=== PATIENT | female | born 1985 | race Caucasian/White ===

== ENCOUNTER 2016-07-01 18:26 | Emergency (ER) | payer BC ==
[~2016-07-01] VITALS: Ht 170.2 cm; Wt 93.0 kg
[~2016-07-01 18:26] MED LIST: ACHD5005 PO; CPR500T PO; FERR-57 PO; OXYC-12 PO; PREN1TAB71 PO; VALA500T4 PO; ZLP5T PO
[2016-07-01] MEDS ORDERED: TETANUS,DIPTH,PERTUSS P/F (BOOSTRIX) 0.5 ML VIAL IM STA (18:58)
[2016-07-01] MEDS ORDERED: PHEN-452 (19:07)
[2016-07-01] MEDS ORDERED: TOPI25TA10 (19:07)
--- NOTE | 2016-07-01 19:16 | ED General ---
General Chief Complaint: Laceration Stated Complaint: R ARM/ELBOW LAC Nursing Triage Note: PT TO ED 10 W/ C/O LACERATION TO RFA. PT REPORTS CUT IT ON BROKEN GLASS UNDER HER BED. NO ACTIVE BLEEDING NOTED AT THIS TIME. Nursing Sepsis Screen: No Definite Risk Source of Information: Patient Exam Limitations: No Limitations History of Present Illness Time Seen by Provider: 19:16 Initial Comments 31-year-old female patient presents to the emergency department with complaints of a laceration to the right forearm. Patient states she was reaching under the bed for piece of broken glass when she cut her arm on the glass. Location Injury Occurred: home Timing/Duration: 1/2 Hour Modifying Factors: worse with Other (worse with palpation) Allergies and Home Medications Allergies Coded Allergies: Penicillins (Unverified Allergy, HIVES, 09/19/11) Home Medications Phentermine HCl 30 Mg Capsule, #30 (Reported) Topiramate 25 Mg Tablet, #60 (Reported) Constitutional: no symptoms reported Musculoskeletal: No joint pain, No muscle pain Skin: see HPI Psychiatric/Neurological: Denies Numbness, Denies Paresthesia, Denies Tingling , Denies Weakness All Other Systems Reviewed Negative Unless Noted: Yes (Negative excepted noted.) Past Ylgduoz-Dypizp-Jclhaj Hx Patient Social History Alcohol Use: Occasionally Uses Recreational Drug Use: No Smoking Status: Never a Smoker Recent Foreign Travel: No Contact w/Someone Who Travel: No Recent Infectious Disease Expo: No Recent Hopitalizations: No Immunizations Up To Date Tetanus Booster (TDap): Unknown Surgeries HX Surgeries: No Respiratory Hx Respiratory Disorders: No Cardiovascular Hx Cardiac Disorders: No Neurological Hx Neurological Disorders: No Reproductive System Hx Reproductive Disorders: No Genitourinary Hx Genitourinary Disorders: No Gastrointestinal Hx Gastrointestinal Disorders: No Musculoskeletal Hx Musculoskeletal Disorders: Yes (FX T9 2008) Endocrine Hx Endocrine Disorders: No HEENT HX ENT Disorders: No Psychosocial Hx Psychiatric Problems: No Blood Transfusions Hx Blood Disorders: No Reviewed Nursing Assessment Reviewed/Agree w Nursing PMH: Yes Family Medical History Significant Family History: No Pertinent Family Hx Physical Exam Vital Signs Vital Sign - Last 12Hours 07/01/16 18:51 Temp 97.1 Pulse 87 Resp 18 B/P (MAP) 128/88 Pulse Ox 99 O2 Delivery Room Air Capillary Refill : Less Than 3 Seconds General Appearance: No Apparent Distress, WD/WN Cardiovascular: No Edema, Normal Peripheral Pulses Extremity: Normal Capillary Refill, Normal Range of Motion, Non Tender, Other ( 3 cm partial thickness laceration of the right forearm without active bleeding. ) Neurologic/Psychiatric: Alert, Oriented x3, No Motor/Sensory Deficits, Normal Mood/Affect Skin: Normal Color, Warm/Dry, Other (3 cm partial thickness laceration of the right forearm without active bleeding. ) Laceration Repair : Wound Location: Upper Extremities (right forearm) Wound Length (cm): 3 Wound's Depth, Shape: superficial, linear Wound Explored: clean Betadine Prep?: No (wound scrubbed with chlorhexidine and sterile saline) Other Closure Supply: Wound Adhesive Progress Blood loss minimal. Patient tolerated the procedure well. Progress/Results/Core Measures Results/Orders My Orders Orders - ROBERT GARCIA Dipht,Pertuss(Acell),Tet Adult (Boostrix (07/01/16 18:58) Vital Signs/I&O Blood Pressure Mean: 101 Departure Impression Impression: Primary Impression: Laceration of right forearm without complication Qualified Codes: S51.811A - Laceration without foreign body of right forearm, initial encounter Disposition: 01 HOME, SELF-CARE Condition: Improved Departure-Patient Inst. Decision time for Depature: 19:22 Referrals: NEVILLE MENDES MD (PCP) Primary Care Physician Patient Instructions: Laceration Repair With Glue (DC) Add. Discharge Instructions: All discharge instructions reviewed with patient and/or family. Voiced understanding. Tylenol [id number]-[id number] as directed for pain if needed. Ibuprofen 800 mg by mouth every 8 hours as needed for pain. Ice pack for 20 minute intervals for pain and swelling. Tomorrow morning you may begin showering with antibacterial soap. Avoid scrubbing the wound. Follow-up with Dr. Mendes if needed. Return to the emergency department for worsened pain, redness, fever, drainage, or any other concerns. ROBERT GARCIA Jul 01, 2016 19:16
[2016-07-01 19:33] VITALS: BP 0/0
--- OUTSIDE RECORDS SUMMARY | 2016-07-20 05:06 | XMS REPORT | Continuity of Care Document ---
Author Author [facility] [address] Organization [facility] [address] Address Unknown Phone Unavailable Allergies Active Description Code Type Severity Reaction Onset Reported/Identified Relationship to Patient Clinical Status Yes Penicillins [id number] Drug Allergy Unknown HIVES 09/19/2011 Medications Problems Date Dx Coded Attending Type Code Diagnosis Diagnosed By 01/19/2011 Ot 599.0 01/19/2011 Ot 789.04 01/19/2011 Ot 789.09 09/08/2011 Ot 276.51 09/08/2011 Ot 648.73 09/08/2011 Ot 648.93 09/08/2011 Ot 724.5 09/08/2011 Ot 780.4 09/08/2011 Ot 787.01 09/08/2011 Ot 787.91 09/26/2011 Ot 285.1 09/26/2011 Ot 647.61 09/26/2011 Ot 648.22 09/26/2011 Ot 652.51 09/26/2011 Ot 656.61 09/26/2011 Ot 660.01 09/26/2011 Ot 660.31 09/26/2011 Ot 663.31 09/26/2011 Ot V06.1 09/26/2011 Ot V27.0 04/05/2014 Ot 656.63 04/05/2014 Ot V72.63 04/05/2014 Ot V74.8 04/07/2014 ALFREDITO WANG RADIATOR TESTER Ot 272.4 04/07/2014 ALFREDITO WANG RADIATOR TESTER Ot 780.79 05/01/2014 ALFREDITO WANG RADIATOR TESTER Ot 272.4 05/01/2014 ALFREDITO WANG RADIATOR TESTER Ot 780.79 01/31/2015 YOBANY LEBRON RADIATOR TESTER Ot R10.9 03/07/2015 ALFREDITO WANG RADIATOR TESTER Ot R10.11 03/22/2015 ALFREDITO WANG RADIATOR TESTER Ot R10.11 07/02/2016 ROBERT CARBAJAL Ot S51.811A LACERATION W/O FOREIGN BODY OF RIGHT FOR 07/02/2016 ROBERT CARBAJAL Ot W25.XXXA CONTACT WITH SHARP GLASS, INITIAL ENCOUN 07/02/2016 ROBERT CARBAJAL Ot Y92.013 BEDROOM OF SINGLE-FAMILY (PRIVATE) HOUSE 07/02/2016 ROBERT CARBAJAL Ot Y99.8 OTHER EXTERNAL CAUSE STATUS 07/02/2016 ROBERT CARBAJAL Ot Z23 ENCOUNTER FOR IMMUNIZATION 07/07/2016 ROBERT CARBAJAL Ot S51.811A LACERATION W/O FOREIGN BODY OF RIGHT FOR 07/07/2016 ROBERT CARBAJAL Ot W25.XXXA CONTACT WITH SHARP GLASS, INITIAL ENCOUN 07/07/2016 ROBERT CARBAJAL Ot Y92.013 BEDROOM OF SINGLE-FAMILY (PRIVATE) HOUSE 07/07/2016 ROBERT CARBAJAL Ot Y99.8 OTHER EXTERNAL CAUSE STATUS 07/07/2016 ROBERT CARBAJAL Ot Z23 ENCOUNTER FOR IMMUNIZATION Procedures Results Encounters ACCT No. Visit Date/Time Discharge Status Pt. Type Provider Facility Loc./Unit Complaint [id number] 07/01/2016 18:28:00 2016 19:33:00 DIS Outpatient ROBERT CARBAJAL [facility] [address] ER R ARM/ELBOW LAC [id number] 03/05/2015 12:24:00 2014 23:59:59 CLS Outpatient ALFREDITO WANG RADIATOR TESTER [facility] [address] CARD [id number] 01/18/2015 08:27:00 2014 23:59:59 CLS Outpatient YOBANY LEBRON RADIATOR TESTER [facility] [address] RAD [id number] 04/05/2014 08:44:00 2013 23:59:59 CLS Outpatient ALFREDITO WANG RADIATOR TESTER [facility] [address] LAB [id number] 04/05/2014 08:42:00 Document Registration [id number] 09/23/2011 05:45:00 Document Registration [id number] 09/19/2011 08:20:00 Document Registration [id number] 09/07/2011 18:00:00 Document Registration [id number] 01/19/2011 02:40:00 Document Registration
== END 2016-07-01 19:33 | disposition home or self-care (01) ==
LOC: EDUNIT# 18:26 → ER 18:28
DX: S51.811A Laceration without foreign body of right forearm, initial encounter (principal); Z23 Encounter for immunization; W25.XXXA Contact with sharp glass, initial encounter; Y92.013 Bedroom of single-family (private) house as the place of occurrence of the external cause; Y99.8 Other external cause status
CPT/HCPCS: 12001; 90471; 90715

== ENCOUNTER → 2018-04-15 | Outpatient (CLI) | payer BC ==
[~2018-04-15] MED LIST changes: +PHEN30CA2; +TOPI25TA10
== END ==
LOC: LAB 15:26
PROVIDERS: ATTEND Family Medicine
DX: Z13.1 Encounter for screening for diabetes mellitus (principal); L68.0 Hirsutism; L70.9 Acne, unspecified
CPT/HCPCS: 36415; 82670; 83036; 84144; 84403

== ENCOUNTER 2019-05-02 08:05 | Emergency (ER) | payer BC ==
[~2019-05-02] VITALS: Ht 170 cm; Wt 105.8 kg
[2019-05-02] MEDS ORDERED: SPIR25TA5 (08:32)
[2019-05-02] MEDS ORDERED: ESCI20TA45 (08:32)
[2019-05-02] MEDS ORDERED: ALPR1TAB7 (08:32)
[2019-05-02] MEDS ORDERED: KETOROLAC 30 MG/ML VIAL IVP ONE (09:15)
[2019-05-02 09:22] LABS: BILIRUBIN,URINE NEGATIVE (NEGATIVE); CLARITY,URINE CLEAR; COLOR,URINE YELLOW; GLUCOSE, URINE (UA) NEGATIVE (NEGATIVE); KETONES,URINE NEGATIVE (NEGATIVE); LEUKOCYTE ESTERASE ,URINE TRACE (NEGATIVE); NITRITE,URINE NEGATIVE (NEGATIVE); PROTEIN,URINE NEGATIVE (NEGATIVE)
--- NOTE | 2019-05-02 09:22 | ED General ---
General Chief Complaint: General Problems/Pain Stated Complaint: BODYACHES Nursing Triage Note: PT CO OF GENERALIZED BODY ACHES ANKLES, KNEES, HIP, HANDS, ELBOWS AND LOWER BACK STATES HAD EPISODE WHEN COULD NOT GET OFF STOOL LAST NITE. HAS DECREASED MOBILITY RATES PAIN 8/10 WORSE AT TIMES. PT HAS SEEN PCP. STATES KURT ELEVATED. PT TEARFUL.STATES TEENAGER TO HELP OFF COMMODE LAST NITE Nursing Sepsis Screen: No Definite Risk Source of Information: Patient Exam Limitations: No Limitations (BEN BRITO MEDICAL STUDENT) History of Present Illness Date Seen by Provider: May 02, 2019 Time Seen by Provider: 08:42 Initial Comments Ms. Botello is a 34 year-old female presenting to the ED via private vehicle for generalized pain. Patient reports that she has been dealing with joint pain "attacks" for the last 4 weeks. During these crises, a number of her large joints hurt. These joints involved have ranged from ankles, knees, hips, and hands. Today she presents with pain in both of her knees, left worse than right, left ankle pain, and left hand pain. She rates the pain as an 8/10 while seated but a 10/10 with any movement. She says the pain is worst with standing/walking. She was unable to get off the toilet last night due to pain and had to call her son for help. She has tried both Tylenol 325mg and Ibuprofen 200mg (x4) for the pain, which provide a small amount of relief for about an hour. She denies muscle pain and feels the pain is intraarticular. She denies any fevers, chills, chest pain, shortness of air, vomiting, diarrhea, or abdominal pain. 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 Previous workup revealed (+)KURT and (-)RF. She is unsure about further results. (BEN BRITO MEDICAL STUDENT) Allergies and Home Medications Allergies Coded Allergies: Penicillins (Unverified Allergy, HIVES, 09/19/11) Review of Systems Review of Systems Constitutional: other (Denies fever, chills) EENTM: nose congestion, other (Recent mild congestion, now resolved. Denies visual disturbances) Respiratory: no symptoms reported, other (Denies SOA, cough, or hemoptysis) Cardiovascular: no symptoms reported, other (Denies chest pain or palpitations) Gastrointestinal: no symptoms reported, other (Denies vomiting, diarrhea, or abdominal pain.) Genitourinary: no symptoms reported, other (Denies hematuria, dysuria, or urgency.) Musculoskeletal: see HPI, joint pain (Polyarthralgias- Hips, knees, ankles, hands. Maximal at left knee today.) Psychiatric/Neurological: Tingling (Left hand), Weakness (Secondary to pain- unable to ambulate at times. ) Hematologic/Lymphatic: No Symptoms Reported (BEN BRITO MEDICAL STUDENT) Past Eysxrlf-Pdtepi-Yaytba Hx Patient Social History Alcohol Use: Rarely Uses Recreational Drug Use: No Smoking Status: Never a Smoker Recent Foreign Travel: No Contact w/Someone Who Travel: No Recent Infectious Disease Expo: No Recent Hopitalizations: No Physical Abuse: No Sexual Abuse: No (BEN BRITO MEDICAL STUDENT) Immunizations Up To Date Tetanus Booster (TDap): Unknown (BEN BRITO STUDENT) Past Medical History Surgeries: No Respiratory: No Cardiac: No Neurological: No Last Menstrual Period: Apr 18, 2019 Reproductive Disorders: No Gastrointestinal: No Musculoskeletal: Yes (FX T9 2008) Endocrine: No Psychosocial: No Blood Disorders: No (BEN BRITO MEDICAL STUDENT) Family Medical History No Pertinent Family Hx (BEN BRITO STUDENT) Physical Exam Vital Signs Vital Signs - First Documented 05/02/19 08:13 Temp 36.8 Pulse 113 Resp 20 B/P (MAP) 147/109 (122) Pulse Ox 99 (JUSTYNA STEINER MD) Vital Signs Capillary Refill : Less Than 3 Seconds (BEN BRITO MEDICAL STUDENT) Height, Weight, BMI Height: 5'7.00" Weight: 205lbs. oz. 92.441204ua; 36.00 BMI Method:Stated General Appearance: WD/WN, Moderate Distress (Tearful during exam) HEENT: PERRL/EOMI, Pharynx Normal Respiratory: Lungs Clear, Normal Breath Sounds, No Accessory Muscle Use Cardiovascular: Regular Rate, Rhythm, No Edema, No Murmur Gastrointestinal: Normal Bowel Sounds, Non Tender, Soft Extremity: Normal Capillary Refill, Other (Bilateral hips, knees, and ankles non-tender to palpation. Flexion and extension of all joints causes pain, worst in left knee. No joint swelling/effusion noted on exam. ) Neurologic/Psychiatric: Alert, Oriented x3 Skin: Normal Color, Warm/Dry, Other (Patient does have faint facial erythema on her cheeks and eyes in a malar distribution. However, she recently started a new facial cream which has been irritating to the region and has been tearful all morning. ) (BEN BRITO MEDICAL STUDENT) Progress/Results/Core Measures Suspected Sepsis Recent Fever Within 48 Hours: No Infection Criteria Present: None New/Unexplained Altered Menta: No Sepsis Screen: No Definite Risk SIRS Temperature: Pulse: 113 Respiratory Rate: 20 Blood Pressure 147 /109 Mean: 122 (BEN BRITO MEDICAL STUDENT) Results/Orders Lab Results Laboratory Tests Test 05/02/19 09:09 05/02/19 09:19 Range/Units Urine Color YELLOW Urine Clarity CLEAR Urine pH 6.0 5-9 Urine Specific Dawson <=1.005 1.016-1.022 Urine Protein NEGATIVE NEGATIVE Urine Glucose (UA) NEGATIVE NEGATIVE Urine Ketones NEGATIVE NEGATIVE Urine Nitrite NEGATIVE NEGATIVE Urine Bilirubin NEGATIVE NEGATIVE Urine Urobilinogen 0.2 < = 1.0 MG/DL Urine Leukocyte Esterase TRACE NEGATIVE Urine RBC (Auto) NEGATIVE NEGATIVE Urine RBC NONE /HPF Urine WBC 2-5 /HPF Urine Squamous Epithelial Cells 5-10 /HPF Urine Crystals NONE /LPF Urine Bacteria TRACE /HPF Urine Casts NONE /LPF Urine Mucus NEGATIVE /LPF Urine Trichomonas MODERATE H /HPF Urine Culture Indicated NO White Blood Count 9.9 4.3-11.0 10^3/uL Red Blood Count 5.04 4.35-5.85 10^6/uL Hemoglobin 15.3 11.5-16.0 G/DL Hematocrit 45 35-52 % Mean Corpuscular Volume 90 80-99 FL Mean Corpuscular Hemoglobin 30 25-34 PG Mean Corpuscular Hemoglobin Concent 34 32-36 G/DL Red Cell Distribution Width 12.6 10.0-14.5 % Platelet Count 326 130-400 10^3/uL Mean Platelet Volume 10.4 7.4-10.4 FL Neutrophils (%) (Auto) 66 42-75 % Lymphocytes (%) (Auto) 24 12-44 % Monocytes (%) (Auto) 9 0-12 % Eosinophils (%) (Auto) 1 0-10 % Basophils (%) (Auto) 0 0-10 % Neutrophils # (Auto) 6.5 1.8-7.8 X 10^3 Lymphocytes # (Auto) 2.3 1.0-4.0 X 10^3 Monocytes # (Auto) 0.9 0.0-1.0 X 10^3 Eosinophils # (Auto) 0.1 0.0-0.3 10^3/uL Basophils # (Auto) 0.0 0.0-0.1 10^3/uL Erythrocyte Sedimentation Rate 8 0-20 MM/HR Sodium Level 139 135-145 MMOL/L Potassium Level 4.1 3.6-5.0 MMOL/L Chloride Level 102 98-107 MMOL/L Carbon Dioxide Level 26 21-32 MMOL/L Anion Gap 11 5-14 MMOL/L Blood Urea Nitrogen 10 7-18 MG/DL Creatinine 0.95 0.60-1.30 MG/DL Estimat Glomerular Filtration Rate > 60 BUN/Creatinine Ratio 11 Glucose Level 103 70-105 MG/DL Uric Acid 4.9 2.6-7.2 MG/DL Calcium Level 9.5 8.5-10.1 MG/DL Corrected Calcium 9.3 8.5-10.1 MG/DL Total Bilirubin 0.4 0.1-1.0 MG/DL Aspartate Amino Transf (AST/SGOT) 33 5-34 U/L Alanine Aminotransferase (ALT/SGPT) 45 0-55 U/L Alkaline Phosphatase 70 40-136 U/L Total Creatine Kinase 53 29-168 U/L C-Reactive Protein High Sensitivity 2.33 H 0.00-0.50 MG/DL Total Protein 7.4 6.4-8.2 GM/DL Albumin 4.3 3.2-4.5 GM/DL TSH [place] Testing 1.04 0.35-4.94 UIU/ML Serum Test, Qualitative NEGATIVE NEGATIVE (JUSTYNA STEINER MD) My Orders Orders - JUSTYNA STEINER MD Ed Iv/Invasive Line Start (05/02/19 09:05) Cbc With Automated Diff (05/02/19 09:05) Comprehensive Metabolic Panel (05/02/19 09:05) Hs C Reactive Protein (05/02/19 09:05) Erythrocyte Sedimentation Rate (05/02/19 09:05) Thyroid Analyzer (05/02/19 09:05) Ua Culture If Indicated (05/02/19 09:05) Hcg,Qualitative Serum (05/02/19 09:05) Ra Factor (Rheumatoid Factor) (05/02/19 09:05) Ketorolac Injection (Toradol Injection) (05/02/19 09:15) Uric Acid (05/02/19 10:58) Creatine Kinase (05/02/19 10:58) (JUSTYNA STEINER MD) Medications Given in ED Current Medications Medications Dose Ordered Sig/Pastora Route Start Time Stop Time Status Last Admin Dose Admin Ketorolac Tromethamine 30 mg ONCE ONCE IVP 05/02/19 09:15 05/02/19 09:16 DC 05/02/19 09:13 30 MG (JUSTYNA STEINER MD) Vital Signs/I&O 05/02/19 08:13 Temp 36.8 Pulse 113 Resp 20 B/P (MAP) 147/109 (122) Pulse Ox 99 (JUSTYNA TSEINER MD) Vital Signs/I&O Capillary Refill : Less Than 3 Seconds (BEN BRITO MEDICAL STUDENT) Blood Pressure Mean: 122 Departure Impression Primary Impression: Arthralgia Qualified Codes: M25.50 - Pain in unspecified joint Disposition: HOME, SELF-CARE Condition: Improved Departure-Patient Inst. Decision time for Depature: 11:52 (JUSTYNA STEINER MD) Referrals: NEVILLE MENDES MD (PCP/Family) Primary Care Physician Patient Instructions: Joint Pain Add. Discharge Instructions: You may take a combination of ibuprofen up to 600 mg every 6 hours and Tylenol (acetaminophen) up to 1000 mg every 6 hours as needed for pain. For pain not controlled by cvqd-suw-sywhfcx medications, you may use Ultram (tramadol) as prescribed. Follow-up with your primary care provider as soon as possible for further evaluation and possible referral to rheumatology. Try all the burst of steroids as prescribed. Take early in the day with food or milk to avoid sleep disturbance or upset stomach. Return to emergent care if you have worsening symptoms despite these treatments or if you develop new symptoms such as fevers over 100.3, muscle weakness, etc. All discharge instructions reviewed with patient and/or family. Voiced understanding. Scripts Prednisone (Prednisone) 20 Mg Tab 40 MG PO DAILY, #8 TAB Prov: JUSTYNA STEINER MD 05/02/19 BEN BRITO MEDICAL STUDENT May 02, 2019 09:22 JUSTYNA STEINER MD May 02, 2019 11:57
[2019-05-02 09:34] LABS: BASOPHILS % (AUTO) 0 % (0-10); EOSINOPHILS # (AUTO) 0.1 10^3/uL (0.0-0.3); EOSINOPHILS % (AUTO) 1 % (0-10); HEMATOCRIT 45 % (35-52); HEMOGLOBIN 15.3 G/DL (11.5-16.0); LYMPHOCYTES # (AUTO) 2.3 X 10^3 (1.0-4.0); LYMPHOCYTES % (AUTO) 24 % (12-44); MEAN CORPUSCULAR HEMOGLOBIN 30 PG (25-34); MEAN CORPUSCULAR HGB CONC 34 G/DL (32-36); MEAN CORPUSCULAR VOLUME 90 FL (80-99); MEAN PLATELET VOLUME 10.4 FL (7.4-10.4); MONOCYTES # (AUTO) 0.9 X 10^3 (0.0-1.0); MONOCYTES % (AUTO) 9 % (0-12); NEUTROPHILS # (AUTO) 6.5 X 10^3 (1.8-7.8); NEUTROPHILS % (AUTO) 66 % (42-75); PLATELET COUNT 326 10^3/uL (130-400); RED CELL DISTRIBUTION WIDTH 12.6 % (10.0-14.5); WHITE BLOOD COUNT 9.9 10^3/uL (4.3-11.0)
[2019-05-02 09:45] LABS: BACTERIA,URINE TRACE /HPF; TRICHOMONAS,URINE MODERATE /HPF
[2019-05-02 09:58] LABS: ERYTHROCYTE SEDIMENTATION RATE 8 MM/HR (0-20)
[2019-05-02 10:07] LABS: ALANINE AMINOTRANSFERASE 45 U/L (0-55); ALBUMIN 4.3 GM/DL (3.2-4.5); ALKALINE PHOSPHATASE 70 U/L (40-136); BILIRUBIN,TOTAL 0.4 MG/DL (0.1-1.0); BUN/CREATININE RATIO 11; CALCIUM 9.5 MG/DL (8.5-10.1); CARBON DIOXIDE 26 MMOL/L (21-32); CHLORIDE 102 MMOL/L (98-107); CREATININE SERUM 0.95 MG/DL (0.60-1.30); GFR ESTIMATED > 60; GLUCOSE 103 MG/DL (70-105); POTASSIUM 4.1 MMOL/L (3.6-5.0); SODIUM 139 MMOL/L (135-145); TOTAL PROTEIN 7.4 GM/DL (6.4-8.2)
[2019-05-02 10:32] LABS: TSH (THYROID ANALYZER) 1.04 UIU/ML (0.35-4.94)
[2019-05-02 11:23] LABS: URIC ACID 4.9 MG/DL (2.6-7.2)
[2019-05-02] MEDS ORDERED: PRD20T PO (11:59)
[2019-05-02 12:09] VITALS: BP 123/86
== END 2019-05-02 12:09 | disposition home or self-care (01) ==
LOC: EDUNIT# 08:05 → ER 08:06
DX: M25.561 Pain in right knee (principal); M25.562 Pain in left knee; M25.572 Pain in left ankle and joints of left foot; M25.542 Pain in joints of left hand; Z88.0 Allergy status to penicillin
CPT/HCPCS: 36415; 80053; 81000; 82550; 84443; 84550; 84703; 85025; 85652; 86141; 86431

== ENCOUNTER → 2019-08-22 | Outpatient (CLI) | payer BC ==
[~2019-08-22] MED LIST changes: +ALPR1TAB7; +BARIUM for suspension 96% w/w (Vanilla Silq Medium Density) PO ONE; +BARIUM for suspension 98% w/w (Vanilla Silq High Density) PO ONE; +ESCI20TA45; +PRD20T PO; +SPIR25TA5
--- NOTE | 2019-08-22 13:31 | Diagnostic Imaging Report ---
INDICATION: Reflux. The study is performed preoperative for gastric sleeve surgery. TECHNIQUE: The patient ingested effervescent crystals as well as thin and thick barium and imaging over the esophagus, stomach, and proximal small bowel was performed. 55 seconds of fluoroscopic time was utilized. FINDINGS: The preliminary radiograph is unremarkable. Post ingestion images demonstrate a smooth contour to the esophagus. No mass or stricture is identified. No gastroesophageal reflux or hiatal hernia is demonstrated. There is prompt emptying of barium into the stomach. The stomach has a normal configuration. No mass or ulceration is seen. The duodenal bulb is without deformity. The visualized proximal small bowel loops are unremarkable. IMPRESSION: Unremarkable upper GI. Dictated by: Dictated on workstation # [id number]
== END ==
LOC: RAD 10:55
PROVIDERS: ATTEND Surgery
DX: K21.9 Gastro-esophageal reflux disease without esophagitis (principal); E66.01 Morbid (severe) obesity due to excess calories
CPT/HCPCS: 74246

== ENCOUNTER 2020-03-28 13:41 | Emergency (ER) | payer BC ==
[~2020-03-28] VITALS: Ht 170.1 cm; Wt 60.0 kg
[~2020-03-28 13:41] MED LIST changes: -BARIUM for suspension 96% w/w (Vanilla Silq Medium Density) PO ONE; -BARIUM for suspension 98% w/w (Vanilla Silq High Density) PO ONE
[2020-03-28] MEDS ORDERED: TETANUS,DIPTH,PERTUSS P/F (BOOSTRIX) 0.5 ML VIAL IM ONE (14:00)
--- NOTE | 2020-03-28 14:06 | NUR ---
TO X RAY PER W/C
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
--- NOTE | 2020-03-28 14:23 | Diagnostic Imaging Report ---
INDICATION: Right forearm pain. TECHNIQUE: AP and lateral views of the right forearm are obtained. FINDINGS: No fracture or acute bony abnormality is seen. IMPRESSION: Negative right forearm. Dictated by: Dictated on workstation # [id number]
--- NOTE | 2020-03-28 14:25 | Diagnostic Imaging Report ---
INDICATION: Fall with injury to the right arm. TIME OF EXAM: 02:10 p.m. EXAMINATION: Two views of right humerus were obtained. FINDINGS: Alignment at the shoulder and elbow appears normal. No fracture is seen. Soft tissues are unremarkable. IMPRESSION: No acute bony abnormality is detected. Dictated by: Dictated on workstation # [id number]
--- NOTE | 2020-03-28 14:25 | Diagnostic Imaging Report ---
INDICATION: Right elbow injury. TIME OF EXAM: 02:13 p.m. TECHNIQUE: Three views of the right elbow were obtained. FINDINGS: Alignment is normal. Joint spaces are well maintained. No definite fracture or dislocation is seen. No definite effusion is identified. IMPRESSION: No acute bony abnormality is detected. Dictated by: Dictated on workstation # [id number]
[2020-03-28 14:50] VITALS: BP 132/70
== END 2020-03-28 14:49 | disposition home or self-care (01) ==
LOC: EDUNIT# 13:41 → ER 13:49
DX: S46.911A Strain of unspecified muscle, fascia and tendon at shoulder and upper arm level, right arm, initial encounter (principal); S50.01XA Contusion of right elbow, initial encounter; S60.512A Abrasion of left hand, initial encounter; Z23 Encounter for immunization; Z88.0 Allergy status to penicillin; Z79.52 Long term (current) use of systemic steroids; V00.141A Fall from scooter (nonmotorized), initial encounter
CPT/HCPCS: 73060; 73080; 73090; A4565; 90715